=== PATIENT | male | born 1990 | race Caucasian/White ===

== ENCOUNTER 2016-11-26 16:49 | Emergency (ER) | payer MEDICAID ==
--- NOTE | 2016-11-26 17:09 | ED Physician Chart ---
Chief Complaint/HPI - Patient Information Date Seen:: 11/26/16 Time Seen:: 17:00 Chief Complaint:: Sorethroat for 3 days. History of Present Illness:: As above. Pt has had fever up to 101F. No dyspnea. Taking po well without N/V/ D. No other bodily pain or discomfort. Allergies:: Allergies Allergy/AdvReac Type Severity Reaction Status Date / Time No Known Allergies Allergy Verified 11/26/16 17:03 Vitals:: see Nurse Note. Historian:: Patient Family MD/PCP:: Dr. Atkinson LMP:: N/A Review:: Nurse's Note Reviewed Review of Systems - Review of Systems General/Constitutional: Fever, No chills, No weight loss, No weakness, No edema , Loss of appetite Skin: No skin lesions, No rash, No bruising Head: No headache, No light-headedness Eyes: No loss of vision, No pain, No diplopia ENT: No earache, No nasal drainage, Sore throat, No tinnitus Neck: No neck pain, No swelling, No thyromegaly, No stiffness, No mass noted Cardio Vascular: No chest pain, No palpitations, No PND, No orthopnea, No edema Pulmonary: No SOB, No cough, No sputum, No wheezing GI: No nausea, No vomiting, No diarrhea, No pain, No melena, No hematochezia, No constipation, No hematemesis G/U: No dysuria, No frequency, No hematuria Musculoskeletal: No bone or joint pain, No back pain, No muscle pain Endocrine: No polyuria, No polydipsia Psychiatric: No prior psych history Hematopoietic: No bruising, No lymphadenopathy Allergic/Immuno: No urticaria, No angioedema Neurological: No syncope, No focal symptoms, No weakness, No paresthesia, No headache, No seizure, No dizziness, No confusion, No vertigo Past Medical History - Past Medical History Past Medical History: No significant medical hx Family History: Cancer (mother.) Social History: Non Smoker, Alcohol (occasional), No Drug Use, Single, Lives With Parents, Employed Employment:: Shopkeeper. Surgical History: None Psychiatricy History: None Medication: Reviewed Family Medical History - Family Member Mother Hx Family Cancer: Yes (BREAST) ED Septic Shock - . Is Septic Shock (SBP<90, OR Lactate>4 mmol\L) present?: No Reassessment (Disposition) - Reassessment Reassessment:: 1750 Pt feels much better. His fever has subsided. Pt requests to go home now and does not want further observation/management in hospital. Aftercare instructions given. Reassessment Condition:: Improved - Diagnosis Diagnosis:: Acute tonsillitis, stable. - Aftercare/Follow up Instructions Aftercare/Follow-Up Instructions:: Refer to Discharge Instructions Notes:: Push oral fluid. Bedrest. Fever instructions given. May take Motrin and/or Tylenol as directed prn pain or fever. Oral hygiene instructions given. May take throat drop such as Cepacol lozenges as directed. F/U with PCP Dr. Atkinson in 2-3 days for recheck. Return to ER immediately if condition worsens or if any further questions/problems. Medication Prescribed:: Amoxicillin 500 mg tab one tab po q8h for 10 days. D-30 R-0 - Patient Disposition Discharge/Transfer:: Home Time:: 18:00 Condition at Disposition:: Stable, Improved
== END 2016-11-26 17:50 | disposition home or self-care (01) ==
LOC: ER 16:49
DX: J03.90 Acute tonsillitis, unspecified (principal)
CPT/HCPCS: Z7502; Z7610